=== PATIENT | female | born 1950 | race American Indian/Alaskan Native ===

== ENCOUNTER 2019-04-19 09:31 | Emergency (ER) | payer MEDICARE ==
[2019-04-19 11:40] LABS: Amorphous Crystals,Urine Few; Bacteria,Urine 4+ /HPF (Negative); Hyaline Casts,Urine 1 /LPF; Mucus,Urine FEW /HPF
[2019-04-19] MEDS ORDERED: amLODIPine 5 MG TAB PO ONE (11:58)
[2019-04-19 12:13] LABS: Bilirubin,Urine Negative (Negative); Blood,Urine 1+ (Negative); Color,Urine Yellow (Yellow); Urobilinogen,Urine < 0.2 mg/dL (<2.0)
--- NOTE | 2019-04-19 12:59 | Emergency Department Report ---
ED Female HPI - General Chief complaint: Urogenital-Female Stated complaint: BURNING IN GROIN Time Seen by Provider: 04/19/19 10:46 Source: patient Mode of arrival: Ambulatory Limitations: No Limitations - History of Present Illness Initial comments: Patient is a 68-year-old female presents emergency room with complaints of dysuria that began 2 days ago. Patient states that she thought she had a yeast infection and used the Monistat 7 days but then 2 days ago began having dysuria. She denies any vaginal discharge, fever, nausea, vomiting, diarrhea, abdominal pain, back pain. She is not sexually active. She denies any past medical history. She has not seen a doctor in 5 years. She denies any allergies to medications. - Related Data Previous Rx's Medication Instructions Recorded Last Taken Type Losartan [Cozaar] 25 mg PO QDAY #30 tablet 04/19/19 Unknown Rx cephALEXin [Keflex] 500 mg PO BID 7 Days #14 cap 04/19/19 Unknown Rx Allergies Allergy/AdvReac Type Severity Reaction Status Date / Time No Known Allergies Allergy Unverified 04/19/19 09:39 ED Review of Systems ROS: Stated complaint: BURNING IN GROIN Other details as noted in HPI Comment: All other systems reviewed and negative ED Past Medical Hx - Past Medical History Previous Medical History?: No - Surgical History Past Surgical History?: No - Social History Smoking Status: Current Every Day Smoker Substance Use Type: None - Medications Home Medications: Home Medications Medication Instructions Recorded Confirmed Last Taken Type Losartan [Cozaar] 25 mg PO QDAY #30 tablet 04/19/19 Unknown Rx cephALEXin [Keflex] 500 mg PO BID 7 Days #14 cap 04/19/19 Unknown Rx ED Physical Exam - General Limitations: No Limitations General appearance: alert, in no apparent distress - Head Head exam: Present: atraumatic, normocephalic - Eye Eye exam: Present: normal appearance - ENT ENT exam: Present: mucous membranes moist - Respiratory Respiratory exam: Present: normal lung sounds bilaterally. Absent: respiratory distress, wheezes, rales, rhonchi, stridor, chest wall tenderness, accessory muscle use, decreased breath sounds, prolonged expiratory - Cardiovascular Cardiovascular Exam: Present: regular rate, normal rhythm, normal heart sounds. Absent: systolic murmur, diastolic murmur, rubs, gallop - GI/Abdominal GI/Abdominal exam: Present: soft, normal bowel sounds. Absent: distended, tenderness, guarding, rebound, rigid - Neurological Exam Neurological exam: Present: alert, oriented X3 - Psychiatric Psychiatric exam: Present: normal affect, normal mood - Skin Skin exam: Present: warm, dry, intact ED Course Vital Signs 04/19/19 04/19/19 04/19/19 09:44 11:53 11:56 Temperature 98.1 F 98.2 F Pulse Rate 93 H 83 Respiratory 16 16 Rate Blood Pressure 197/126 Blood Pressure 168/104 200/120 [Right] O2 Sat by Pulse 97 97 Oximetry 04/19/19 04/19/19 12:20 13:57 Temperature Pulse Rate 80 Respiratory Rate Blood Pressure 200/123 Blood Pressure 157/92 [Right] O2 Sat by Pulse Oximetry ED Medical Decision Making - Medical Decision Making Patient is a 68-year-old female presents emergency room with complaints of dysuria that began 2 days ago. Patient states that she thought she had a yeast infection and used the Monistat 7 days but then 2 days ago began having dysuria. She denies any vaginal discharge, fever, nausea, vomiting, diarrhea, abdominal pain, back pain. She is not sexually active. She denies any past medical history. She has not seen a doctor in 5 years. She denies any allergies to medications. vitals with elevated blood pressure which improved upon amlodipine and hydralazine administration. UA shows 4+ bacteria and leukocyte esterase, patient will be treated with Keflex for UTI. Patient given prescription for losartan for hypertension. advised pt to please take medication as prescribed. Increase your water intake. Please keep a blood pressure log and take your blood pressure 3 times a day. Eat a low-sodium diet. Follow-up with a primary care doctor in the next 2 days for reevaluation and further management of your blood pressure. Return to the emergency room for any new or worsening symptoms. - Differential Diagnosis UTI, yeast, BV, vaginitis Critical care attestation.: If time is entered above; I have spent that time in minutes in the direct care of this critically ill patient, excluding procedure time. ED Disposition Clinical Impression: UTI (urinary tract infection) Qualifiers: Urinary tract infection type: acute cystitis Hematuria presence: without hematuria Qualified Code(s): N30.00 - Acute cystitis without hematuria HTN (hypertension) Qualifiers: Hypertension type: essential hypertension Qualified Code(s): I10 - Essential (primary) hypertension Disposition: TO HOME OR SELFCARE Is pt being admited?: No Does the pt Need Aspirin: No Condition: Stable Instructions: Urinary Tract Infection in Women (ED), Hypertension (ED) Additional Instructions: Please take medication as prescribed. Increase your water intake. Please keep a blood pressure log and take your blood pressure 3 times a day. Eat a low- sodium diet. Follow-up with a primary care doctor in the next 2 days for reevaluation and further management of your blood pressure. Return to the emergency room for any new or worsening symptoms. Prescriptions: Losartan [Cozaar] 25 mg PO QDAY #30 tablet cephALEXin [Keflex] 500 mg PO BID 7 Days #14 cap Referrals: CLEMENCIA THAPA MD [Staff Physician] - 2-[address] [facility] [Outside] - 2-3 Days [facility] [Outside] - 2-3 Days Time of Disposition: 13:59 Print Language: NEPALESE
[2019-04-19] MEDS ORDERED: hydrALAZINE 100 MG TAB PO ONE (13:13)
[2019-04-19 13:57] VITALS: BP 157/92
== END 2019-04-19 14:12 | disposition home or self-care (01) ==
LOC: ED 09:31
DX: N39.0 Urinary tract infection, site not specified (principal); I10 Essential (primary) hypertension; F17.200 Nicotine dependence, unspecified, uncomplicated
CPT/HCPCS: 81001; 87086; 99283

== ENCOUNTER 2019-05-26 09:58 | Outpatient (CLI) | payer MEDICARE ==
--- NOTE | 2019-05-26 11:04 | Mammography Report ---
DIGITAL SCREENING MAMMOGRAM WITH CAD, 05/26/2019 INDICATION: Routine screening mammography. TECHNIQUE: Digital bilateral 2D mammography was obtained in the craniocaudal and mediolateral obliq ue projections. This examination was interpreted with the benefit of Computer-Aided Detection analysi s. COMPARISON: None available. FINDINGS: Breast Density: The breasts are heterogeneously dense, which may obscure small masses. There is no evidence of dominant mass, suspicious calcifications or architectural distortion in eithe r breast. IMPRESSION: No mammographic evidence of malignancy. Follow up recommendation: Routine yearly BI-RADS Category 1: Negative. A "normal" or negative report should not discourage follow up or biopsy of a clinically significant f inding. A written summary of these findings will be mailed to the patient. The patient will be entered into a mammography reporting system which will generate a reminder letter for the patient's next appointmen t at the appropriate interval. The [employer] recommends yearly mammograms starting at age 40 and continuing as l ricardo as a woman is in good health. Breast MRI is recommended for women with an approximate 20-25% or greater lifetime risk of breast cancer, including women with a strong family history of breast or ova ave cancer or who have been treated for Hodgkin's disease. Signer Name: Rikki Simno MD Signed: 05/26/2019 11:00 AM Workstation Name: [id number]
== END 2019-05-26 09:59 | disposition home or self-care (01) ==
LOC: MAMMO 09:58
PROVIDERS: ATTEND Internal Medicine
DX: Z12.31 Encounter for screening mammogram for malignant neoplasm of breast (principal)
CPT/HCPCS: 77067

== ENCOUNTER 2020-05-26 08:52 | Outpatient (CLI) | payer MEDICARE ==
--- NOTE | 2020-05-26 10:09 | Mammography Report ---
DIGITAL SCREENING MAMMOGRAM WITH CAD, 05/26/2020 CLINICAL INFORMATION / INDICATION: Routine screening mammography. TECHNIQUE: Digital bilateral 2D mammography was obtained in the craniocaudal and mediolateral obliqu e projections. This examination was interpreted with the benefit of Computer-Aided Detection analysis . COMPARISON: 05/26/2019 FINDINGS: Breast Density: The breasts are heterogeneously dense, which may obscure small masses. No dominant mass, suspicious calcifications, or architectural distortion in either breast. No interval change. IMPRESSION: No mammographic evidence of malignancy. Follow up recommendation: Routine yearly BI-RADS Category 1: Negative. A "normal" or negative report should not discourage follow up or biopsy of a clinically significant f inding. A written summary of these findings will be mailed to the patient. The patient will be entered into a mammography reporting system which will generate a reminder letter for the patient's next appointmen t at the appropriate interval. The [employer] recommends yearly mammograms starting at age 40 and continuing as l ricardo as a woman is in good health. Breast MRI is recommended for women with an approximate 20-25% or greater lifetime risk of breast cancer, including women with a strong family history of breast or ova ave cancer or who have been treated for Hodgkin's disease. Signer Name: Lacey Pearson MD Signed: 05/26/2020 10:04 AM Workstation Name: [id number]
== END 2020-05-26 08:53 | disposition home or self-care (01) ==
LOC: MAMMO 08:52
PROVIDERS: ATTEND Internal Medicine
DX: Z12.31 Encounter for screening mammogram for malignant neoplasm of breast (principal)
CPT/HCPCS: 77067

== ENCOUNTER 2021-05-28 09:45 | Outpatient (CLI) | payer MEDICARE ==
--- NOTE | 2021-05-28 16:02 | Mammography Report ---
DIGITAL SCREENING MAMMOGRAM WITH CAD, 05/28/2021 CLINICAL INFORMATION / INDICATION: Routine screening TECHNIQUE: Digital bilateral 2D mammography was obtained in the craniocaudal and mediolateral obliqu e projections. This examination was interpreted with the benefit of Computer-Aided Detection analysis . COMPARISON: 05/26/2020 FINDINGS: Breast Density: The breasts are heterogeneously dense, which may obscure small masses. No dominant mass, suspicious calcifications, or architectural distortion in either breast. IMPRESSION: No mammographic evidence of malignancy. Follow up recommendation: Routine yearly BI-RADS Category 1: NEGATIVE A "normal" or negative report should not discourage follow up or biopsy of a clinically significant f inding. A written summary of these findings will be mailed to the patient. The patient will be entered into a mammography reporting system which will generate a reminder letter for the patient's next appointmen t at the appropriate interval. The [employer] recommends yearly mammograms starting at age 40 and continuing as l ricardo as a woman is in good health. Breast MRI is recommended for women with an approximate 20-25% or greater lifetime risk of breast cancer, including women with a strong family history of breast or ova ave cancer or who have been treated for Hodgkin's disease. Signer Name: Brendan Win MD Signed: 05/28/2021 3:58 PM Workstation Name: [id number]
== END 2021-05-28 09:46 | disposition home or self-care (01) ==
LOC: MAMMO 09:45
PROVIDERS: ATTEND Internal Medicine
DX: Z12.31 Encounter for screening mammogram for malignant neoplasm of breast (principal)
CPT/HCPCS: 77067

== ENCOUNTER 2021-07-12 10:29 | Outpatient (CLI) | payer MEDICARE ==
--- NOTE | 2021-07-12 13:14 | Cat Scan Report ---
CT ABDOMEN AND PELVIS WITHOUT CONTRAST HISTORY: R31.29 OTHER MICROSCOPIC HEMATURIA. COMPARISON: None. TECHNIQUE: CT images of the abdomen and pelvis were obtained without administration of intravenous co ntrast. All CT scans at this location are performed using CT dose reduction for ALARA by means of au tomated exposure control. FINDINGS: Lungs/bones: Lower lobe atelectasis Abdomen/pelvis: Several hypodensities are seen in the liver could represent cyst however nonspecific . Adrenal glands, spleen, pancreas, gallbladder and upper GI tract appear normal. Bilateral renal hyp odensities may represent renal cyst. No definite renal or ureteral stone. No hydronephrosis. Urinary bladder appears normal. Appendix appears normal. No free fluid in the abdomen or pelvis. Degenerative changes seen in the spine IMPRESSION: 1. Lower lobe atelectasis. 2. No definite renal or ureteral stone. 3. Hypodensities in the liver and kidneys suggest cyst. Signer Name: Justin Segovia MD Signed: 07/12/2021 1:10 PM Workstation Name: [id number]
== END 2021-07-12 10:30 | disposition home or self-care (01) ==
LOC: CT 10:29
PROVIDERS: ATTEND Urology
DX: R31.29 Other microscopic hematuria (principal); J98.11 Atelectasis; M47.819 Spondylosis without myelopathy or radiculopathy, site unspecified
CPT/HCPCS: 74176

== ENCOUNTER 2021-10-17 08:44 | Outpatient (CLI) | payer MEDICARE ==
[2021-10-17 13:20] LABS: Chol/HDL Ratio 3.4 %
== END 2021-10-17 08:45 | disposition home or self-care (01) ==
LOC: LABHHL 08:44
PROVIDERS: ATTEND Internal Medicine
DX: R73.9 Hyperglycemia, unspecified (principal); E78.5 Hyperlipidemia, unspecified
CPT/HCPCS: 36415; 80061; 83036